=== PATIENT | male | born 1965 | race Caucasian/White ===

== ENCOUNTER 2018-10-03 14:38 | Emergency (ER) | payer BC ==
--- OUTSIDE RECORDS SUMMARY | 2018-10-03 14:54 | XMS REPORT | Continuity of Care Document ---
:1965 External Reference #:[id number] Author Name Rickie Surya Address [address] [place] [address] Care Team Providers Name Role Phone Damian, Surya Care Team Information Air Conditioning Unit Tester Unavailable Payers Type Date Identification Numbers Payment Provider Subscriber Policy Number: [id number] [facility] Ppo Les Zamudio Group Number: [id number] [address] [address] PayID: [id number] [place] [address] Advance Directives Description No Information Available Problems Date Description Provider Status Onset: 02/25/2014 Low back pain Surya Damian DO Active Onset: 12/22/2011 Palpitations Active Family History Date Family Member(s) Problem(s) Comments Father Lymphoma Father MS Father Cancer, Colon Mother Cancer, Breast : (age 75 Years) Mother due to Leukemia Children 2 Social History Type Date Description Comments Sex Unknown Marital Status Occupation Tax Attorney ETOH Use Occasionally consumes alcohol Tobacco Use Start: Unknown Patient has never smoked Smoking Status Reviewed: 09/20/18 Patient has never smoked Allergies, Adverse Reactions, Alerts Date Description Reaction Status Severity Comments 03/13/2015 NKDA Active 04/05/2016 Seasonal Active Medications Medication Date Status Form Strength Qnty SIG Indications Ordering Provider No Active 04/05 Active Unknown Medications Lidocaine 12/08 Hx Patches 5% 30uni apply 1 patch ts topically 12 Surya, - hours a day DO 04/05 as needed for postherpetic neuralgia pain in the r leg No Active 03/16 Hx Unknown Medications - 12/08 Naproxen 09/09 Hx Tablets 375mg 60tab 1 po bid with , /2008 s food x 2 Waqas Pryor then MD 03/16 prn /2014 Cyclobenzaprine 09/09 Hx Tablets 5mg 30tab 1-2 po qhs , s prn spasms Waqas Pryor MD 03/16 Immunizations CPT Code Status Date Vaccine Lot # [id number] Given 07/25/2018 Influenza Vac, 3 Yrs & Older, Quadrivalent, Split, [place] Use [address] Given 08/07/2014 Afluria Or Fluvirin Flu Vac Intramuscular 51112 Given 02/25/2014 Tdap (Adacel) Ages 7 And Above Only 74488 Given 09/15/2009 Afluria Or Fluvirin Flu Vac Intramuscular 55850 Given 09/09/2009 Administration Swine Flu Vaccine H1N1 Vital Signs Date Vital Result Comment 09/20/2018 11:19am Weight 118.00 lb Heart Rate 66 /min BP Systolic 120 mmHg BP Diastolic 70 mmHg Respiratory Rate 17 /min Height 69.5 inches 5'9.50" BMI (Body Mass Index) 17.2 kg/m2 04/06/2017 9:28am Weight 119.00 lb Heart Rate 64 /min BP Systolic 126 mmHg BP Diastolic 74 mmHg Respiratory Rate 17 /min Height 69.5 inches 5'9.50" (03/2017) BMI (Body Mass Index) 17.3 kg/m2 09/14/2016 3:07pm Weight 129.00 lb Heart Rate 76 /min BP Systolic 126 mmHg BP Diastolic 82 mmHg Respiratory Rate 17 /min Height 69.5 inches 5'9.50" (03/2016) BMI (Body Mass Index) 18.8 kg/m2 04/05/2016 11:18am Weight 124.00 lb Heart Rate 72 /min BP Systolic 116 mmHg BP Diastolic 64 mmHg Respiratory Rate 16 /min Height 69.5 inches 5'9.50" (03/2016) BMI (Body Mass Index) 18.0 kg/m2 12/09/2015 9:44am Body Temperature 96.8 F Weight 127.00 lb Heart Rate 76 /min BP Systolic 102 mmHg BP Diastolic 70 mmHg Respiratory Rate 18 /min Height 69.5 inches 5'9.50" BMI (Body Mass Index) 18.5 kg/m2 03/16/2015 10:27am Body Temperature 98.4 F Weight 128.00 lb Heart Rate 72 /min BP Systolic 120 mmHg BP Diastolic 70 mmHg Respiratory Rate 18 /min Height 69.5 inches 5'9.50" BMI (Body Mass Index) 18.6 kg/m2 02/25/2014 8:59am Weight 128.00 lb Heart Rate 72 /min BP Systolic 130 mmHg BP Diastolic 72 mmHg Respiratory Rate 18 /min Height 69.5 inches 5'9.50" 02/22/2013 8:59am Weight 131.00 lb Heart Rate 70 /min BP Systolic 110 mmHg BP Diastolic 70 mmHg Respiratory Rate 18 /min Height 69.5 inches 5'9.50" 02/20/2012 10:58am Weight 137.00 lb Heart Rate 64 /min BP Systolic 120 mmHg BP Diastolic 72 mmHg Respiratory Rate 20 /min Height 69.50 inches 5'9.50" 12/22/2011 9:35am Weight 133.00 lb Heart Rate 80 /min BP Systolic 110 mmHg BP Diastolic 74 mmHg Respiratory Rate 20 /min Height 69.50 inches 5'9.50" 11/22/2011 10:44am Weight 132.00 lb Heart Rate 74 /min BP Systolic 140 mmHg BP Diastolic 84 mmHg Respiratory Rate 20 /min Height 69.50 inches 5'9.50" 03/31/2010 3:10pm Weight 133.00 lb Heart Rate 70 /min BP Systolic 116 mmHg BP Diastolic 80 mmHg Respiratory Rate 16 /min 09/09/2009 10:19am Weight 135.00 lb Heart Rate 66 /min BP Systolic 122 mmHg BP Diastolic 80 mmHg Respiratory Rate 16 /min 01/20/2007 9:21am Body Temperature 97.1 F Weight 141.00 lb Heart Rate 64 /min BP Systolic 140 mmHg BP Diastolic 80 mmHg Respiratory Rate 20 /min 12/29/2006 10:19am Body Temperature 98.1 F Weight 137.00 lb Heart Rate 67 /min BP Systolic 110 mmHg BP Diastolic 78 mmHg Respiratory Rate 18 /min O2 % BldC Oximetry 96 % 07/04/2006 3:32pm Weight 136.00 lb Heart Rate 86 /min BP Systolic 118 mmHg BP Diastolic 70 mmHg Respiratory Rate 17 /min 05/29/2006 1:10pm Weight 135.25 lb Heart Rate 72 /min BP Systolic 124 mmHg BP Diastolic 76 mmHg Respiratory Rate 16 /min Results Test Date Facility Test Result H/L Range Note CBC With Auto Diff 09/20/2018 [facility] WBC 5.4 K/uL 4.1-11.0 RBC 5.25 M/uL 4.60-6.10 Hemoglobin 15.6 gm/dL 13.5-18.0 Hematocrit 47.3 % 41.0-53.0 MCV 90.1 fL 80.0-97.0 MCH 29.8 pg 27.0-32.0 MCHC 33.1 g/dL 32.0-36.0 RDW 13.2 % 11.5-14.5 PLT Count 242 K/ul 140-400 MPV 9.1 FL 7.1-10.7 Neutrophil 55.4 % 35.0-75.0 Lymphocyte 32.4 % 16.0-52.0 Monocyte 8.0 % 2.0-10.0 Eosinophil 3.7 % 0.0-5.0 Basophil 0.5 % 0.0-4.0 Abs Neutrophils 3.0 K/uL 2.1-8.0 Abs Lymphocytes 1.8 K/uL 0.8-5.5 Abs Monocytes 0.4 K/uL 0.1-1.0 Abs Eosinophils 0.2 K/uL 0.0-0.5 Abs Basophils 0.0 K/uL 0.0-0.3 Laboratory test finding 09/20/2018 [facility] PSA 1.000 ng/mL 0.000-4.000 1 Comprehensive Met Panel-FCM 09/20/2018 [facility] Sodium 142 mmol/L 135- 146 2 Potassium 4.5 mmol/L 3.5-5.2 Chloride# 103 mmol/L 97-110 3 Carbon Dioxide 30 mmol/L 24-34 Glucose 94 mg/dL 70-105 BUN 14 mg/dL 6-26 Creatinine 1.0 mg/dL 0.5-1.4 Calcium 9.9 mg/dL 8.5-10.2 Total Protein 6.9 g/dL 6.0-8.0 Albumin 4.7 g/dL 3.6-4.9 Globulin 2.2 g/dL 2.0-3.5 A/G Ratio 2.1 Ratio 1.0-2.2 Total Bilirubin 0.6 mg/dL 0.1-1.3 Alkaline Phosphatase 54 U/L 24-140 Alt 17 U/L 3-42 Ast 21 U/L 8-42 Pat Egfr >60 >60 4 Non Pat Egfr >60 >60 5 Anion Gap 9 mmol/L 5-15 6 Laboratory test finding 09/20/2018 [facility] TSH 2.83 uIU/mL 0.35-4.94 CBC With Auto Diff 04/06/2017 [facility] WBC 5.4 K/uL 4.1-11.0 RBC 5.18 M/uL 4.60-6.10 Hemoglobin 15.1 gm/dL 13.5-18.0 Hematocrit 47.2 % 41.0-53.0 MCV 91.2 fL 80.0-97.0 MCH 29.1 pg 27.0-32.0 MCHC 31.9 g/dL Low 32.0-36.0 RDW 13.3 % 11.5-14.5 PLT Count 218 K/ul 140-400 Neutrophil 54.1 % 35.0-75.0 Lymphocyte 32.1 % 16.0-52.0 Monocyte 8.0 % 2.0-10.0 Eosinophil 4.9 % 0.0-5.0 Basophil 0.9 % 0.0-4.0 Abs Neutrophils 2.9 K/uL 2.1-8.0 Abs Lymphocytes 1.7 K/uL 0.8-5.5 Abs Monocytes 0.4 K/uL 0.1-1.0 Abs Eosinophils 0.3 K/uL 0.0-0.5 Abs Basophils 0.0 K/uL 0.0-0.3 Lipid 04/06/2017 [facility] Cholesterol 155 mg/dL 50-199 Triglycerides 99 mg/dL 30-200 HDL 53 mg/dL 29-71 7 Chol/ HDL Ratio 2.9 ratio Low 4.0-6.7 VLDL 20 mg/dL 2-29 LDL (Calc) 82 mg/dL 20-99 8 Laboratory test finding 04/06/2017 [facility] PSA 0.960 ng/mL 0.000-4.000 9 Comprehensive Met Panel-FCMG 04/06/2017 [facility] Sodium 142 mmol/L 135- 146 10 Potassium 4.8 mmol/L 3.5-5.2 Chloride# 105 mmol/L 97-110 11 Carbon Dioxide 27 mmol/L 24-34 Glucose 74 mg/dL 70-105 BUN 14 mg/dL 6-26 Creatinine 0.9 mg/dL 0.5-1.4 Calcium 9.6 mg/dL 8.5-10.2 Total Protein 6.8 g/dL 6.0-8.0 Albumin 4.4 g/dL 3.6-4.9 Globulin 2.4 g/dL 2.0-3.5 A/G Ratio 1.8 Ratio 1.0-2.2 Total Bilirubin 0.6 mg/dL 0.1-1.3 Alkaline Phosphatase 45 U/L 24-140 Alt 19 U/L 3-42 Ast 20 U/L 8-42 Pat Egfr >60 >60 12 Non Pat Egfr >60 >60 13 Anion Gap 15 mmol/L 7-16 14 Laboratory test finding 04/06/2017 [facility] TSH 1.86 uIU/mL 0.35-4.94 Lipid 04/17/2015 [facility] Cholesterol 171 mg/dL 50-199 Triglycerides 86 mg/dL 30-200 HDL 56 mg/dL 29-71 15 Chol/ HDL Ratio 3.1 ratio Low 4.0-6.7 VLDL 17 mg/dL 2-29 LDL (Calc) 98 mg/dL 20-99 16 Comprehensive Metabolic (CMP) 04/17/2015 [facility] Sodium 140 mmol/L 134- 142 Potassium 4.8 mmol/L 3.5-5.2 Chloride 103 mmol/L 97-109 Carbon Dioxide 31 mmol/L 24-34 Glucose 87 mg/dL 70-105 BUN 11 mg/dL 6-26 Creatinine 1.1 mg/dL 0.5-1.4 Calcium 9.9 mg/dL 8.5-10.2 Total Protein 7.2 g/dL 6.0-8.0 Albumin 4.7 g/dL 3.6-4.9 Globulin 2.5 g/dL 2.0-3.5 A/G Ratio 1.9 Ratio 1.0-2.2 Total Bilirubin 0.6 mg/dL 0.1-1.3 Alkaline Phosphatase 47 U/L 24-140 Alt 18 U/L 3-42 Ast 20 U/L 8-42 Anion Gap 11 mmol/L 6-14 Pat Egfr >60 >60 17 Non Pat Egfr >60 >60 18 Laboratory test finding 04/17/2015 [facility] Vitamin B12 531 pg/mL 180- 914 CBC With Auto Diff 04/17/2015 [facility] WBC 5.6 K/uL 4.1-11.0 RBC 5.32 M/uL 4.60-6.10 Hemoglobin 16.0 gm/dL 13.5-18.0 Hematocrit 48.2 % 41.0-53.0 MCV 90.6 fL 80.0-97.0 MCH 30.1 pg 27.0-32.0 MCHC 33.2 g/dL 32.0-36.0 RDW 13.0 % 11.5-14.5 PLT Count 219 K/ul 140-400 Neutrophil 50.0 % 35.0-75.0 Lymphocyte 36.9 % 16.0-52.0 Monocyte 7.3 % 2.0-10.0 Eosinophil 5.1 % High 0.0-5.0 Basophil 0.7 % 0.0-4.0 Abs Neutrophils 2.8 K/uL 2.1-8.0 Abs Lymphocytes 2.1 K/uL 0.8-5.5 Abmon 0.4 K/uL 0.1-1.0 Abs Eosinophils 0.3 K/uL 0.0-0.5 Abs Basophils 0.0 K/uL 0.0-0.3 Laboratory test finding 04/17/2015 [facility] TSH 2.24 uIU/mL 0.35-4.94 Laboratory test finding 02/22/2013 N2N/CCD Import % Baso. 1.5 % 0.0-2.0 % Eos. 4.6 % High 0.0-4.0 % Lymph 37 % 20-44 % [place] 9.0 % 2.0-10.0 % [place] 48 % Low 50-70 Absolute Baso. 0.1 K/ul 0.0-0.3 Absolute Eos. 0.2 K/ul 0.0-0.5 Absolute Lymph. 2.0 K/ul 0.8-4.8 Absolute [place]. 0.5 K/ul 0.1-1.0 Absolute [place]. 2.63 K/ul 2.05-7.63 BUN 15.0 mg/dL 9.0-21.0 BUN/Creat Ratio 16.7 ratio 12.0-20.0 Calcium 9.8 mg/dL 8.7-10.5 Chloride 105.0 mmol/L 98.0-107.0 Co2 25.0 mmol/L 22.0-30.0 Creatinine-Serum 0.9 mg/dL 0.8-1.5 Glucose 88.0 mg/dL 75.0-110.0 HCT 49.5 % 37.0-51.0 HGB 15.8 Gm/dl 12.0-16.0 MCH 29.6 pg 26.0-32.0 MCHC 31.9 g/dL 31.0-36.0 MCV 92.7 Fl 80.0-97.0 MPV 8.9 fL 6.0-10.0 PLT 271 K/ul 140-440 Potasium 4.4 mmol/L 3.6-5.0 RBC 5.3 M/ul 4.2-6.3 RDW 11.7 % 11.5-14.5 Sodium 142.0 mmil/L 137.0-145.0 TSH 2.53 uIU/ml 0.50-6.00 Vitamin B12 588.0 pg/mL 200.0-900.0 WBC 5.5 K/ul 4.1-10.9 eGFR 96.6 Lipid Panel 02/22/2013 N2N/CCD Import Chol/HDL Ratio 3.5 ratio Cholesterol 173.0 mg/dL 50.0-199.0 HDL 49.0 mg/dL 29.0-67.0 LDL, Calculated 100.8 mg/dL 20.0-129.0 Triglycerides 116.0 mg/dL 30.0-249.0 vLDL 23.2 ng/dL Lipid Panel 11/25/2011 N2N/CCD Import Chol/HDL Ratio 2.8 19, 20 Cholesterol 184 mg/dL 50-199 HDL Cholesterol 64 mg/dL 29-67 LDL 94 mg/dL 20-129 Triglycerides 129 mg/dL 30-249 VLDL Cholesterol 26 mg/dL Laboratory test finding 11/22/2011 N2N/CCD Import Anion Gap 17 mmol/L 10 -20 BUN 14 mg/dL 9-21 BUN/CR Ratio 16.7 Ratio 12-20 Calcium 9.6 mg/dL 8.7-10.5 Carbon Dioxide 28 mmol/L 22-30 Chloride 100 mmol/L 98-107 Creatinine, Serum 0.8 mg/dL 0.8-1.5 Free T4 1.20 ng/dL 0.75-1.54 Glucose 84 mg/dL 75-110 Potassium 4.7 mmol/L 3.6-5.0 Sodium 141 mmol/L 137-145 TSH 2.271 uIU/ml 0.50-6.00 Laboratory test finding 09/18/2009 N2N/CCD Import Anion Gap 13 mmol/L 10 -20 BUN 16 mg/dL 9-21 BUN/CR Ratio 17.8 Ratio 12-20 Calcium 10.0 mg/dL 8.7-10.5 Carbon Dioxide 32 mmol/L High 22-30 Chloride 103 mmol/L 98-107 Creatinine, Serum 0.9 mg/dL 0.8-1.5 Glucose 94 mg/dL 75-110 Potassium 4.4 mmol/L 3.6-5.0 Sodium 143 mmol/L 137-145 Lipid Panel 09/18/2009 N2N/CCD Import Chol/HDL Ratio 3.1 21 Cholesterol 166 mg/dL 50-199 HDL Cholesterol 52 mg/dL 29-67 LDL 92 mg/dL 20-129 Triglycerides 111 mg/dL 30-249 VLDL Cholesterol 22 mg/dL Lipid Panel 06/26/2006 N2N/CCD Import Chol/HDL Ratio 3.34 22 Cholesterol 196 mg/dL 50-199 HDL Cholesterol 59 mg/dL 29-67 LDL 115 mg/dL 20-129 Triglycerides 113 mg/dL 30-249 VLDL Cholesterol 23 mg/dL 1 Beginning 12/04/06 PSA values assayed at [email or web address] uses chemiluminescence methodology manufactured by [employer] for use on the DXI analyzer. Values obtained with different assay methods or kits can not be used interchangeably. Serum PSA measurement is not an absolute test for malignancy. The PSA value should be used in conjunction with information available from clinical evaluation and other diagnostic procedures. 2 Updated reference range on new analyzer 3 Updated reference range on new analyzer 4 Concerning GFR Guidelines for Americans: Normal function or mild renal disease, if clinically at risk: >/=60 mL/min Moderately decreased: 30-59 Severely decreased: 15-29 Renal failure: <15 5 Concerning GFR Guidelines: Normal function or mild renal disease, if clinically at risk: >/=60 mL/min Moderately decreased: 30-59 Severely decreased: 15-29 Renal failure: <15 Glomerular Filtration Rate (GFR) is estimated based on the MDRD equation, which assumes a steady state for creatinine as recommended by the National Kidney Disease Education Program in conjunction with the National Institutes of Health and the National Kidney Foundation. Clinical conditions in which it may be necessary to measure GFR by using clearance methods include extremes of age and body size, severe malnutrition or obesity, diseases of skeletal muscle, paraplegia or quadriplegia, vegetarian diet, rapidly changing kidney function, and calculation of the dose of potentially toxic drugs that are excreted by the kidneys. 6 Updated Reference Range 7 Per NCEP ATP III Guidelines: Results lower than 40 mg/dL are suggestive of increased risk for coronary artery disease. Results > or=to 60 mg/dL are considered a negative risk factor. 8 Per NCEP ATP III Guidelines: Normal Population <130 Patients with medical conditions: CHD/DM Optimal: <100 Borderline high: 130-159 High: 160-189 Very high: >189 9 Beginning 12/04/06 PSA values assayed at [email or web address] uses chemiluminescence methodology manufactured by [employer] for use on the DXI analyzer. Values obtained with different assay methods or kits can not be used interchangeably. Serum PSA measurement is not an absolute test for malignancy. The PSA value should be used in conjunction with information available from clinical evaluation and other diagnostic procedures. 10 Updated reference range on new analyzer 11 Updated reference range on new analyzer 12 Concerning GFR Guidelines for Americans: Normal function or mild renal disease, if clinically at risk: >/=60 mL/min Moderately decreased: 30-59 Severely decreased: 15-29 Renal failure: <15 13 Concerning GFR Guidelines: Normal function or mild renal disease, if clinically at risk: >/=60 mL/min Moderately decreased: 30-59 Severely decreased: 15-29 Renal failure: <15 Glomerular Filtration Rate (GFR) is estimated based on the MDRD equation, which assumes a steady state for creatinine as recommended by the National Kidney Disease Education Program in conjunction with the National Institutes of Health and the National Kidney Foundation. Clinical conditions in which it may be necessary to measure GFR by using clearance methods include extremes of age and body size, severe malnutrition or obesity, diseases of skeletal muscle, paraplegia or quadriplegia, vegetarian diet, rapidly changing kidney function, and calculation of the dose of potentially toxic drugs that are excreted by the kidneys. 14 Updated reference range on new analyzer 15 Per NCEP ATP III Guidelines: Results lower than 40 mg/dL are suggestive of increased risk for coronary artery disease. Results > or=to 60 mg/dL are considered a negative risk factor. 16 Per NCEP ATP III Guidelines: Normal Population <130 Patients with medical conditions: CHD/DM Optimal: <100 Borderline high: 130-159 High: 160-189 Very high: >189 17 Concerning GFR Guidelines for Americans: Normal function or mild renal disease, if clinically at risk: >/=60 mL/min Moderately decreased: 30-59 Severely decreased: 15-29 Renal failure: <15 18 Concerning GFR Guidelines: Normal function or mild renal disease, if clinically at risk: >/=60 mL/min Moderately decreased: 30-59 Severely decreased: 15-29 Renal failure: <15 Glomerular Filtration Rate (GFR) is estimated based on the MDRD equation, which assumes a steady state for creatinine as recommended by the National Kidney Disease Education Program in conjunction with the National Institutes of Health and the National Kidney Foundation. Clinical conditions in which it may be necessary to measure GFR by using clearance methods include extremes of age and body size, severe malnutrition or obesity, diseases of skeletal muscle, paraplegia or quadriplegia, vegetarian diet, rapidly changing kidney function, and calculation of the dose of potentially toxic drugs that are excreted by the kidneys. 19 FASTING 20 Normal Range: Male: <4.98 Female: <4.45 21 Normal Range: Male: <4.98 Female: <4.45 22 Normal Range: Male: <4.98 Female: <4.45 Procedures Date Code Description Status 05/30/2017 [id number] Colonoscopy Completed 04/06/2017 04976 Screening Hearing Test Completed 04/06/2017 09817 Remove Impact Cerumen Irrigation/Lavage Completed 04/05/2016 90415 Screening Hearing Test Completed 03/16/2015 70270 Screening Hearing Test Completed 03/16/2015 82668 Remove Impacted Cerumen Requiring Instrumentation Completed Encounters Type Date Location Provider Dx Diagnosis Office Visit 04/06/2017 Surya Smart DO Z00.00 Encntr for general 9:00a adult medical exam w/o abnormal findings R32 Unspecified urinary incontinence C44.91 Basal cell carcinoma of skin, unspecified M54.5 Low back pain I73.00 Raynaud's syndrome without gangrene Z12.11 Encounter for screening for malignant neoplasm of colon Z12.5 Encounter for screening for malignant neoplasm of prostate Z13.220 Encounter for screening for lipoid disorders R63.4 Abnormal weight loss R21 Rash and other nonspecific skin eruption M25.512 Pain in LEFT shoulder H61.21 Impacted cerumen, RIGHT ear Office Visit 09/14/2016 3:00p Surya Smart DO M25.511 Pain in RIGHT shoulder Office Visit 04/05/2016 11:00a Surya Smart DO Z00.00 Encntr for general adult medical exam w/o abnormal findings R32 Unspecified urinary incontinence C44.91 Basal cell carcinoma of skin, unspecified 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 M54.5 Low back pain I73.00 Raynaud's syndrome without gangrene Office Visit 12/09/2015 9:45a [facility] Surya Damian DO 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 Office Visit 03/16/2015 10:30a [facility] Surya Damian DO V70.0 Exam (Adult) General Medical Routine AT [facility] 788.30 Incontinence Urinary Unspec 380.4 Impacted Cerumen 173.91 Basal Cell Carcinoma Skin ,Site Unspecified 724.2 Lumbago 780.79 Malaise And Fatigue Other V77.91 Screening For Lipoid Disorders 443.0 Raynauds Syndrome 300.01 Panic Disorder W/O Agoraphobia 703.0 Ingrowing Nail 786.2 Cough Plan of Treatment Future Appointment(s):09/26/2019 11:15 am - Surya Damian DO at [facility]09/20/2018 - Surya Damian DOZ00.00 Encounter for general adult medical examination without abnoFollow up:Get labs done today. Follow up in 1 year for an annual physical or sooner if you have any problems.R32 Unspecified urinary pzxcjhvkfsehI33.5 Encounter for screening for malignant neoplasm of aplnnuaiR39.91 Basal cell carcinoma of skin, owojgaytoteI44.5 Low back painI73.00 Raynaud's syndrome without fqcdwpyoU52.0 Acute stress maohvruyU09.672 Pain in LEFT footZ68.1 Body mass index (BMI) 19.9 or less, adult
[2018-10-03 15:11] VITALS: BP 120/73
--- NOTE | 2018-10-03 16:24 | UC ---
Upper Extremity HPI - HPI Summary HPI Summary: 52-year-old male presents with onset of right hand and forearm tingling yesterday about 1 hour after accidentally cutting a string of [employer] lights while trying to trim a branch off the tree. States he was using insulated mary ellen and wearing leather gloves at the time and does not recall any specific electrical shock. Denies headache, weakness, dizziness, visual disturbances, facial droop, speech difficulties, extremity weakness, chest pain, palpitations , or shortness of breath. - History of Current Complaint Chief Complaint: UCGeneralIllness Stated Complaint: ELECTRICAL SHOCK 10/02 Time Seen by Provider: 10/03/18 16:00 Hx Obtained From: Patient Pain Intensity: 0 - Allergies/Home Medications Allergies/Adverse Reactions: Allergies Allergy/AdvReac Type Severity Reaction Status Date / Time No Known Allergies Allergy Verified 10/03/18 15:08 PMH/Surg Hx/FS Hx/Imm Hx Previously Healthy: Yes - Denies significant PMH - Surgical History Surgical History: None - Family History Known Family History: Positive: Cardiac Disease, Hypertension, Diabetes - Social History Occupation: Employed Full-time Lives: With Family Alcohol Use: Rare Substance Use Type: None Smoking Status (MU): Never Smoked Tobacco Review of Systems All Other Systems Reviewed And Are Negative: Yes Constitutional: Negative: Fever, Chills Skin: Negative: Rash, Other - lesion Respiratory: Negative: Shortness Of Breath Cardiovascular: Negative: Palpitations, Chest Pain Gastrointestinal: Negative: Vomiting, Nausea Motor: Positive: Negative Neurovascular: Positive: Negative Musculoskeletal: Positive: Negative Neurological: Positive: Paresthesia. Negative: Headache, Weakness Physical Exam - Summary Physical Exam Summary: GENERAL APPEARANCE: Well developed, well nourished, alert and cooperative, and appears to be in no acute distress. EYES: PERRL, EOM intact. Vision is grossly intact. NECK: Neck supple, non-tender. CARDIAC: Normal S1 and S2. No S3, S4 or murmurs. Rhythm is regular. There is no peripheral edema, cyanosis or pallor. Extremities are warm and well perfused. Capillary refill is less than 2 seconds. LUNGS: Clear to auscultation and percussion without rales, rhonchi, wheezing or diminished breath sounds. ABDOMEN: Positive bowel sounds. Soft, nondistended, nontender. No guarding or rebound. No masses or hepatosplenomegally. MUSKULOSKELETAL: ROM intact to all extremities. No joint erythema or tenderness. Normal muscular development. Normal gait. NEUROLOGICAL: Strength and sensation symmetric and intact throughout. SKIN: Skin normal color, texture and turgor with no lesions or eruptions. Triage Information Reviewed: Yes Vital Signs: Initial Vital Signs Temp 98 F 10/03/18 15:06 Pulse 76 10/03/18 15:06 Resp 16 10/03/18 15:06 BP 120/73 10/03/18 15:06 Pulse Ox 100 10/03/18 15:06 Vital Signs Reviewed: Yes Diagnostics - EKG Cardiac Rate: NL Cardiac Rhythm: Sinus: Normal Ectopy: None ST Segment: Normal Summary of EKG Findings: NSR without ectopy or ST elevation. Upper Extremity Course/Dx - Course Course Of Treatment: 52-year-old male presents with onset of right hand and forearm tingling yesterday about 1 hour after accidentally cutting a string of [employer] lights while trying to trim a branch off the tree. States he was using insulated mary ellen and wearing leather gloves at the time and does not recall any specific electrical shock. Denies headache, weakness, dizziness, visual disturbances, facial droop, speech difficulties, extremity weakness, chest pain, palpitations, or shortness of breath. Afebrile. Vital signs stable. Exam was unremarkable. 12-lead EKG normal sinus rhythm. Recommend watchful waiting at this time. Patient to follow up with primary care provider in 3-5 days if symptoms persist, warning symptoms were reviewed with the patient , verbalizes understanding and agrees with plan of care. - Differential Dx/Diagnosis Differential Diagnosis/HQI/PQRI: Other - Electric shock, CAD, PR, arrythmia, carpal tunnel, neuropathy Provider Diagnosis: Numbness and tingling of right hand Discharge - Sign-Out/Discharge Documenting (check all that apply): Patient Departure All imaging exams completed and their final reports reviewed: No Studies - Discharge Plan Condition: Stable Disposition: HOME Patient Education Materials: Paresthesia (ED) Referrals: Surya Damian DO [Primary Care Provider] - 3 Days (Follow up in 3-5 days if symptoms persist.) Additional Instructions: The 12-lead EKG that was performed in the clinic today was normal. I am unsure if the tingling you are having in her hand and arm are related to the accident cutting electrical wire but it is possible that there may be some nerve irritation from this event. I would recommend some watchful waiting at this time. Follow-up with your primary care provider in 3-5 days if the symptoms persist. Seek immediate medical attention in the emergency room if he developed any chest pain, have a sensation of your heart racing or skipping beats, become weak or dizzy, have any shortness of breath, headache, visual disturbances, speech difficulties, facial droop, weakness of the extremities, or any worsening of symptoms. - Billing Disposition and Condition Condition: STABLE Disposition: Home - Attestation Statements Provider Attestation: I was available for consult. This patient was seen by the MAN. The patient was not presented to, seen by, or examined by me. -Nalini
== END 2018-10-03 16:31 | disposition home or self-care (01) ==
LOC: UCCORT 14:38
DX: W86.0XXA Exposure to domestic wiring and appliances, initial encounter (principal); Y93.89 Activity, other specified; Y92.009 Unspecified place in unspecified non-institutional (private) residence as the place of occurrence of the external cause; R20.0 Anesthesia of skin; R20.2 Paresthesia of skin
CPT/HCPCS: 93005; 99201; G0463